=== PATIENT | female | born 1970 | race Caucasian/White ===

== ENCOUNTER 2018-04-19 15:44 | Emergency (ER) | payer OTHER ==
[~2018-04-19] VITALS: Ht 166.4 cm; Wt 119.3 kg
[2018-04-19 16:20] VITALS: BP 136/85
--- NOTE | 2018-04-19 16:31 | ED UPPER/LOWER EXTREMITY COMPL ---
History of Present Illness General Chief Complaint: Fall Stated Complaint: "FELL YESTERDAY LT ARM AND LT FOOT PAIN" Source: patient Exam Limitations: no limitations Vital Signs & Intake/Output Vital Signs & Intake/Output Vital Signs Date Time Temp Pulse Resp B/P B/P Pulse O2 O2 Flow FiO2 Mean Ox Delivery Rate 04/19 1930 78 18 98 Room Air 04/19 1855 80 04/19 1620 97.9 74 20 136/85 97 Room Air ED Intake and Output 04/20 0000 04/19 1200 Intake Total Output Total Balance Patient 263 lb Weight Weight Reported by Patient Measurement Method Allergies Coded Allergies: Sulfa (Sulfonamide Antibiotics) (Intermediate, "DRUG FEVER" AND RASH 04/19/18) Uncoded Allergies: IVP CONTRAST (Intermediate, VOMITING 04/19/18) Reconcile Medications Albuterol Sulfate (Proair Hfa) 90 MCG HFA.AER.AD 2 PUF INH Q4-6 PRN PRN OCCASIONAL ASTHMA TYPE S/S (Reported) Triage Note: TRIAGE: PT TO ER C/C PAIN TO L ARM AND L FOOT S/P TRIP/FALL YESTERDAY. STATES SHE WAS AT [employer] AND WAS WALKING INTO CHECK THE [email or web address] WHEN SHE TRIPPED ON THE STEP INTO THE ROOM AND FELL WITH HER ARM LANDING ON THE [email or web address]. HAS HX OF FX TO L FOOT x 4 IN THE PAST. TOOK MOTRIN FOR PAIN, WITH SOME RELIEF OF SWELLING BUT NOT TOUCHING PAIN. MEDICATED WITH TYLENOL PER PROTOCOL AND PER PATIENT REQUEST. Triage Nurses Notes Reviewed? yes Onset: Abrupt Duration: constant Timing: recent history Severity: moderate Severity Numbers: 5 Method of Injury: fall HPI: Patient is a 47-year-old female who presents emergency and that yesterday while ambulating into a shower she tripped over a ledge falling forward and having acute onset of left foot and ankle pain and bracing her fall with her left forearm and wrist she had acute onset of pain. Patient denies any head strike neck or back pain. Patient states ambulation makes worse. Denies any preceding absolute of dizziness and lightheaded sensation. Ibuprofen was taken earlier this morning (Joseph Roldan) Past History Travel History Traveled to [place] past 21 day No Medical History Any Pertinent Medical History? see below for history Neurological: NONE EENT: NONE Cardiovascular: HEART MURMUR Respiratory: NONE Gastrointestinal: NONE Hepatic: cholelithiasis Renal: nephrolithiasis Musculoskeletal: NONE Psychiatric: NONE Endocrine: NONE Blood Disorders: NONE Cancer(s): NONE MANAGER MEDIA/Reproductive: NONE Surgical History Surgical History: non-contributory Psychosocial History What is your primary language Dutch Tobacco Use: Quit >30 days ago ETOH Use: denies use Illicit Drug Use: denies illicit drug use Family History Hx Contributory? No (Joseph Roldan) Review of Systems Review of Systems Constitutional: Reports: no symptoms. EENTM: Reports: no symptoms. Respiratory: Reports: no symptoms. Cardiovascular: Reports: no symptoms. Gastrointestinal/Abdominal: Reports: no symptoms. Genitourinary: Reports: no symptoms. Musculoskeletal: Reports: see HPI. Skin: Reports: no symptoms. Neurological/Psychological: Reports: no symptoms. Hematologic/Endocrine: Reports: no symptoms. Immunological: Reports: no symptoms. All Other Systems: Reviewed and Negative (Joseph Roldan) Physical Exam Physical Exam General Appearance: no apparent distress, alert, comfortable, obese Head: atraumatic Eyes: Bilateral: normal appearance. Ears, Nose, Throat: hearing grossly normal Neck: no midline tenderness Cardiovascular/Respiratory: no respiratory distress Peripheral Pulses: 2+ radial (L), 2+ dorsalis pedis (L) Neurologic/Tendon: normal sensation, normal motor functions, normal tendon functions, responds to pain, no evidence tendon injury, no pulse deficit Skin: intact, normal color, warm/dry Comments: Left elbow normal inspection nontender full active range of motion Left wrist generalized point tenderness noted mild decreased active range of motion noted Left hand normal inspection mild general is point tenderness noted mild scaphoid tenderness Left knee normal inspection nontender left ankle normal inspection bilateral malleoli point tenderness Left foot generalized point tenderness noted mild swelling noted Left upper extremity and left lower extremity dermatomes intact pulses intact (Joseph Roldan) Progress Differential Diagnosis: arterial insufficiency, compartment syndrome, contusion, dislocation, DVT, fracture, gout, septic arthritis, sprain, tendon injury Plan of Care: Orders Procedure Date/time Status Durable Medical Equipment 04/19 1911 Active X-rays were resulted no concern of left wrist for fractures a wrist splint was placed for concerns of wrist sprain the left lower extremity x-rays shows concerns of medial malleoli avulsion fracture Using orthopedic glass I placed patient in posterior splint along with web roll and Johnnie wrap pre-and post-neurovascular was intact patient was strongly advised to follow-up with orthopedic doctor this week Patient had no questions Diagnostic Imaging: Viewed by Me: Radiology Read. Radiology Impression: acute abnormality Comments: PATIENT: JOSEPH ONEAL PRESENT AGE: 47 PATIENT ACCOUNT NO: [id number] : 68 LOCATION: [facility] ORDERING PHYSICIAN: Juanito Metcalf DO (TBS) SERVICE DATE: 04/19/18 EXAM TYPE: RAD - XRY-ANKLE 3 OR MORE VIEWS L; XRY-FOOT COMPLETE, LEFT EXAMINATION: XR ANKLE, LEFT XR FOOT, LEFT CLINICAL INFORMATION: Left ankle pain status post fall. Left foot pain status post fall. COMPARISON: None TECHNIQUE: 1. 3 views of the left ankle. 2. 3 views of the left foot. FINDINGS: Left ankle: There is some irregularity of the distal tip of the medial malleolus which could indicate acute avulsion injury. The examination is somewhat limited by angle positioning. The talar dome appears intact. The ankle mortise is likely congruent. No other evidence for fracture. No radio opaque foreign body. Left foot: 2 well-corticated densities adjacent to the cuboid bone most likely represent os peroneum. There is no acute fracture or subluxation. Prominent posterior and plantar (two)enthesophytes of the calcaneus are demonstrated. There is mild irregularity of the midfoot bones along the dorsal surface. This is chronic in appearance. IMPRESSION: 1. Suspect acute avulsion injury involving the deltoid ligaments of the left ankle. 2. No acute left foot injury. 3. Plantar enthesophytes. 4. Mild to moderate degenerative changes involving the midfoot region. DICTATED BY: Jolie Ruiz MD DATE/TIME DICTATED:04/19/181728 MANAGER GOLF:ARLET DATE/TIME TRANSCRIBED:04/19/181728 PATIENT: JOSEPH ONEAL PRESENT AGE: 47 PATIENT ACCOUNT NO: [id number] : 68 LOCATION: [facility] ORDERING PHYSICIAN: Juanito Metcalf DO (TBS) SERVICE DATE: 04/19/18 EXAM TYPE: RAD - XRY-FOREARM, LEFT; XRY-WRIST 2 VIEWS LEFT EXAMINATION: XR FOREARM, LEFT XR WRIST, LEFT CLINICAL INFORMATION: Left wrist and forearm pain status post fall yesterday. COMPARISON: None TECHNIQUE: AP and lateral views of the left forearm were obtained. AP and lateral views left wrist were obtained. FINDINGS: The bones and soft tissues are normal. No fracture. Imaged portions of the forearm and wrist are unremarkable. IMPRESSION: Normal left forearm and wrist. DICTATED BY: Minh Cuevas MD DATE/TIME DICTATED:04/19/181752 MANAGER GOLF:ARLET DATE/TIME TRANSCRIBED:04/19/181752 (Joseph Roldan) Departure Departure Disposition: HOME OR SELF CARE Condition: Stable Clinical Impression Primary Impression: Avulsion fracture of medial malleolus of left tibia Secondary Impressions: Left ankle sprain, Sprain of wrist, left Referrals: Cb Alvarado MD Additional Instructions: As discussed begin using the crutches to not put weight on her left ankle. The splint that has been applied TO YOU AT all times and to follow-up with the orthopedic doctor, elevate your leg for swelling. Begin ibuprofen for pain. Begin using the left wrist splint for your wrist pain. If symptoms worsen return to emergency room Tomorrow please follow-up and call orthopedic Cb Alvarado MD for further evaluation treatment Departure Forms: Customer Survey General Discharge Information (Joseph Roldan) PA/ELECTRONICS INSPECTOR Co-Sign Statement Statement: ED Attending supervision documentation- [] I saw and evaluated the patient. I have also reviewed all the pertinent lab results and diagnostic results. I agree with the findings and the plan of care as documented in the PA's/ELECTRONICS INSPECTOR's documentation. [x] I have reviewed the ED Record and agree with the PA's/ELECTRONICS INSPECTOR's documentation. [] Additions or exceptions (if any) to the PAs/ELECTRONICS INSPECTOR's note and plan are summarized below: [] (Jose CARREON,Mina Osborn)
[2018-04-19] MEDS ORDERED: PROAIR HFA8.5 GM INH (16:32)
--- NOTE | 2018-04-19 17:37 | RADIOLOGY REPORT ---
EXAMINATION: XR ANKLE, LEFT XR FOOT, LEFT CLINICAL INFORMATION: Left ankle pain status post fall. Left foot pain status post fall. COMPARISON: None TECHNIQUE: 1. 3 views of the left ankle. 2. 3 views of the left foot. FINDINGS: Left ankle: There is some irregularity of the distal tip of the medial malleolus which could indicate acute avulsion injury. The examination is somewhat limited by angle positioning. The talar dome appears intact. The ankle mortise is likely congruent. No other evidence for fracture. No radio opaque foreign body. Left foot: 2 well-corticated densities adjacent to the cuboid bone most likely represent os peroneum. There is no acute fracture or subluxation. Prominent posterior and plantar (two)enthesophytes of the calcaneus are demonstrated. There is mild irregularity of the midfoot bones along the dorsal surface. This is chronic in appearance. IMPRESSION: 1. Suspect acute avulsion injury involving the deltoid ligaments of the left ankle. 2. No acute left foot injury. 3. Plantar enthesophytes. 4. Mild to moderate degenerative changes involving the midfoot region.
--- NOTE | 2018-04-19 18:43 | RADIOLOGY REPORT ---
EXAMINATION: XR FOREARM, LEFT XR WRIST, LEFT CLINICAL INFORMATION: Left wrist and forearm pain status post fall yesterday. COMPARISON: None TECHNIQUE: AP and lateral views of the left forearm were obtained. AP and lateral views left wrist were obtained. FINDINGS: The bones and soft tissues are normal. No fracture. Imaged portions of the forearm and wrist are unremarkable. IMPRESSION: Normal left forearm and wrist.
== END 2018-04-19 19:38 ==
LOC: ERH 15:44
DX: S82.52XA Displaced fracture of medial malleolus of left tibia, initial encounter for closed fracture (principal); S93.402A Sprain of unspecified ligament of left ankle, initial encounter; S63.502A Unspecified sprain of left wrist, initial encounter; W18.09XA Striking against other object with subsequent fall, initial encounter; Y92.59 Other trade areas as the place of occurrence of the external cause; Y93.89 Activity, other specified
CPT/HCPCS: 73090-LT; 73100-LT; 73610-LT; 73630-LT